=== PATIENT | female | born 1960 | race African-American/Black ===

== ENCOUNTER → 2017-01-26 | Emergency (ER) | payer SELFPAY ==
[~2017-01-26] MED LIST: OXYCODONE/APAP 5/325MG COMBO TABLET ONE; OXYCODONE/APAP 5/325MG COMBO TABLET PO ONE
[2017-01-26 19:15] VITALS: BP 162/83; PULSE 108; TEMP 98.6; BMI 35.3
--- NOTE | 2017-01-26 20:37 | PDOC ---
Attending Attestation - HPI HPI: 01/26/17 22:39 Patient is a 56 year old female with a significant past medical hx of who presents to the ED with swelling to the bilateral ankles. - Physicial Exam PE: 01/26/17 22:40 GENERAL: Awake, alert, and fully oriented, in no acute distress HEAD: No signs of trauma EYES: PERRLA, EOMI, sclera anicteric, conjunctiva clear ENT: Auricles normal inspection, hearing grossly normal, nares patent, oropharynx clear without exudates. Moist mucosa NECK: Normal ROM, supple, no lymphadenopathy, JVD, or masses LUNGS: Breath sounds equal, clear to auscultation bilaterally. No wheezes, and no crackles HEART: Regular rate and rhythm, normal S1 and S2, no murmurs, rubs or gallops ABDOMEN: Soft, nontender, normoactive bowel sounds. No guarding, no rebound. No masses EXTREMITIES: (+)bilateral dependent edema to the ankles and legs. Normal range of motion. No clubbing or cyanosis. No cords, erythema, or tenderness NEUROLOGICAL: Cranial nerves II through XII grossly intact. Normal speech. SKIN: Warm, Dry, normal turgor, no rashes or lesions noted. - Medical Decision Making 01/26/17 22:41 Plan -Duplex US r/o DVT -r/o CHF -Anticipate dc home with dependent edema 01/26/17 23:35 Duplex is negative for DVT Dc home with dependent edema Documentation prepared by GUERRERO Abad, acting as medical microbiologist for Johnny Shultz DO <Vanita Shah - Last Filed: 01/26/17 23:35> - Resident Resident Name: Stevo Pretty - ED Attending Attestation I have performed the following: I have examined & evaluated the patient, The case was reviewed & discussed with the resident, I agree w/resident's findings & plan, Exceptions are as noted <Johnny Shultz - Last Filed: 01/27/17 00:11> Discharge Disposition - Discharge Dispostion Last Admission D/C Date: 11/17/03 <Johnny Shultz - Last Filed: 01/27/17 00:11> - Diagnosis Dependent edema - Discharge Dispostion Disposition: HOME Condition at time of disposition: Good - Prescriptions Prescriptions: Furosemide [Lasix] 20 mg PO BID #10 tablet - Referrals Referrals: Sheela Adams MD [Primary Care Provider] - - Patient Instructions Printed Discharge Instructions: DI for Dependent Edema Additional Instructions: Please return to the ER if you experience concerning or worsening symptoms. Please call to follow up with your primary care provider to discuss your ER visit. We have given you medication to help relieve the fluid build up in your legs. Please take twice a day and follow up with your primary care provider to discuss other medication options. We have given you enough for 5 days. - Post Discharge Activity Work/School Note: Back to Work
--- NOTE | 2017-01-26 21:05 | PDOC ---
History of Present Illness - General Chief Complaint: Pain Stated Complaint: SWOLLEN ANKLES Time Seen by Provider: 01/26/17 19:59 - History of Present Illness Initial Comments: 01/26/17 23:04 Patient is a 56 year old female with a history of HTN who presents with left lower extremity pain and swelling. She reports onset of achy/sharp pain beginning in her ankle 1 week ago with associated swelling. Over the past week she notes increased pain and swelling up her left leg to her knee and difficulty walking prompting her visit to the ED today. She denies any recent long travel as well as SOB, chest pain, abdominal pain, or changes with urination or bowel movements. Past History - Past Medical History Allergies/Adverse Reactions: Allergies Allergy/AdvReac Type Severity Reaction Status Date / Time No Known Allergies Allergy Verified 01/26/17 19:11 Home Medications: Ambulatory Orders Amlodipine Bes/Olmesartan Med [Wendy 10-40 mg Tablet] 1 each PO DAILY 01/26/17 Furosemide [Lasix] 20 mg PO BID #10 tablet 01/26/17 Nebivolol [Bystolic -] 2.5 mg PO DAILY 01/26/17 HTN: Yes - Surgical History Appendectomy: Yes - Psycho/Social/Smoking Cessation Hx Anxiety: No Suicidal Ideation: No Smoking History: Never smoked Information on smoking cessation initiated: No Hx Alcohol Use: No Drug/Substance Use Hx: No Substance Use Type: Alcohol Review of Systems - Review of Systems Constitutional: No: Chills, Fever HEENTM: No: Nose Congestion, Throat Pain Respiratory: No: Cough, Shortness of Breath, Hemoptysis Cardiac (ROS): No: Chest Pain, Lightheadedness, Palpitations ABD/GI: No: Constipated, Diarrhea, Nausea, Vomiting : No: Burning, Dysuria Integumentary: No: Rash Neurological: No: Headache, Numbness, Tingling *Physical Exam - Vital Signs Last Vital Signs Temp Pulse Resp BP Pulse Ox 98.6 F 108 H 20 162/83 100 01/26/17 19:11 01/26/17 19:11 01/26/17 19:11 01/26/17 19:11 01/26/17 19:11 - Physical Exam Comments: 01/26/17 23:14 General Appearance: Nourished. No Apparent Distress HEENT: No Pharyngeal Erythema, Tonsillar Exudate, Tonsillar Erythema Respiratory/Chest: Lungs Clear, Normal Breath Sounds. No Rhonchi, Stridor, Wheezing Cardiovascular: Regular Rhythm, Regular Rate. No Murmur, Gallop/S3, Gallop/S4 Gastrointestinal/Abdominal: Normal Bowel Sounds, Soft. No Guarding, Rebound, Tenderness Extremity: 1+ edema around the left ankle. Left calf and ankle tenderness to palpation. Strong DP pulses bilaterally. Sensation to light touch and temperature intact bilaterally. Integumentary: Normal Color, Dry, Warm Neurologic: Fully Oriented, Alert, Normal Mood/Affect, Normal Response ED Treatment Course - LABORATORY CBC & Chemistry Diagram: 01/26/17 21:22 01/26/17 21:22 - RADIOLOGY Radiology Studies Ordered: Category Date Time Status ANKLE & FOOT-LEFT* [RAD] Stat Radiology 01/26/17 20:30 Ordered LEG TIB/FIB-LEFT [RAD] Stat Radiology 01/26/17 20:30 Ordered DUPLEX VASCUL US-1 LEG [US] Stat Ultrasound 01/26/17 20:30 Ordered Medical Decision Making - Medical Decision Making 01/26/17 23:15 Patient is a 56 year old female who presents who with left lower extremity edema and pain. The patient has had a previous surgery on her left ankle for a previous fracture with leftover instrumentation. Given her reported pain, we will obtain a plain radiograph of her left leg and ankle to evaluate for any pathology. We will also get a lower extremity doppler to evaluate for DVT though we have a lower suspicion for DVT at this time. We will also obtain a cbc, cmp and bnp to evaluate for CHF although also less likely at this time. The most likely cause of her symptoms is dependent edema 01/26/17 23:43 Patient's work up has been negative thus far. The most likely cause is dependent edema and we feel comfortable discharging the patient home with follow up with her primary care provider. We will provide the patient with Lasix to assist with the edema in her legs. The patient is agreeable to the plan. *DC/Admit/Observation/Transfer Diagnosis at time of Disposition: Dependent edema - Discharge Dispostion Disposition: HOME Condition at time of disposition: Good - Prescriptions Prescriptions: Furosemide [Lasix] 20 mg PO BID #10 tablet - Referrals Referrals: Sheeal Adams MD [Primary Care Provider] - - Patient Instructions Printed Discharge Instructions: DI for Dependent Edema Additional Instructions: Please return to the ER if you experience concerning or worsening symptoms. Please call to follow up with your primary care provider to discuss your ER visit. We have given you medication to help relieve the fluid build up in your legs. Please take twice a day and follow up with your primary care provider to discuss other medication options. We have given you enough for 5 days. - Attestations Physician Attestion: 01/26/17 23:37 I, Dr. Stevo Pretty, attest that this document has been prepared under my direction and personally reviewed by me in its entirety. I further attest, that it accurately reflects all work, treatment, procedures and medical decision -making performed by me.
[2017-01-26 21:32] LABS: EOSINOPHIL 1.4 % (0-4.5); MCH 31.1 pg (25.7-33.7); MCHC 33.6 g/dl (32.0-36.0); MEAN CELL VOLUME 92.6 fl (80-96); MEAN PLT VOLUME 7.8 fl (7.5-11.1); NEUTROPHILS 67.7 % (42.8-82.8); PLATELET COUNT 219 K/MM3 (134-434); RDW 14.4 % (11.6-15.6); WHITE BLOOD COUNT 8.9 K/mm3 (4.0-10.0)
[2017-01-26 22:03] LABS: ALBUMIN 3.7 g/dl (3.4-5.0); ANION GAP 8 (8-16); BILIRUBIN,TOTAL 0.2 mg/dL (0.2-1.0); CO2 27 mmol/L (21-32); GLUCOSE,RANDOM 103 mg/dL (74-106); SGOT/AST 18 U/L (15-37); SGPT/ALT 26 U/L (12-78); TOT PROT 7.7 g/dl (6.4-8.2)
[2017-01-26 22:06] LABS: ALK PHOS 130 U/L (45-117)
--- NOTE | 2017-01-27 10:16 | EKG ---
Test Reason : Blood Pressure : / mmHG Vent. Rate : 083 BPM Atrial Rate : 083 BPM P-R Int : 154 ms QRS Dur : 076 ms QT Int : 392 ms P-R-T Axes : 049 041 041 degrees QTc Int : 460 ms NORMAL SINUS RHYTHM NORMAL ECG WHEN COMPARED WITH ECG OF 26-AUG-2014 17:23, NO SIGNIFICANT CHANGE WAS FOUND Confirmed by MD KRISTINA, TRINA ([id number]) on 01/27/2017 10:16:28 AM Referred By: Confirmed By:TRINA ACEVEDO MD
== END | disposition home or self-care (01) ==
LOC: JER 19:03
DX: R60.0 Localized edema (principal); I10 Essential (primary) hypertension
CPT/HCPCS: 36415; 73590-TC-LT; 73610-TC-LT; 73630-TC-LT; 80053; 83880; 84443; 85025; 93005; 93010; 93971-TC; 99282-25

== ENCOUNTER 2018-06-07 00:59 | Inpatient (IN) | payer SELFPAY ==
[2018-06-07 03:08] LABS: EOS % 0.9 % (0-4.5); HEMOGLOBIN 13.4 GM/dL (10.7-15.3); LYMPH % 20.2 % (8-40); MCH 32.3 pg (25.7-33.7); MCHC 35.3 g/dl (32.0-36.0); MEAN CELL VOLUME 91.5 fl (80-96); MEAN PLT VOLUME 8.3 fl (7.5-11.1); MONO % 7.5 % (3.8-10.2); NEUT % 70.4 % (42.8-82.8); PLATELET COUNT 255 K/MM3 (134-434); RBC 4.16 M/mm3 (3.60-5.2); RDW 14.1 % (11.6-15.6); WHITE BLOOD COUNT 10.9 K/mm3 (4.0-10.0)
--- NOTE | 2018-06-07 03:42 | PDOC ---
History of Present Illness - General Chief Complaint: Chest Pain Stated Complaint: CHEST PAIN Time Seen by Provider: 06/07/18 02:09 - History of Present Illness Initial Comments: 06/07/18 03:40 58 yo F with h/o CAD, and HTN who p/w chest pain. Patient reports acute, unremitting, sharp, pressure-type, onset of left sided chest pain,with no identifiable triggers or alleviators. Pain radiates down left arm. Denies h/o similiar symptoms. Pain at rest, but worse with exertion. + Godfrey. Patient with missed dose Amlodipine x 1 week, and Bystolic x 1 day. Denies h/o PE/DVT. No recent immoblization, travel, surgery. Patient denies N/V, palpitations, cough, orthopnea, PND, wheezing, leg pain/ swelling, F,C, urinary complaints, abdominal pain, diarrhea, BPR, hematuria, constipation, lightheadedness, weakness, sensory changes. PMHx: as noted above. Does not recall past stress test x 2 years. Denies h/o stent placement, CABG. ROS: as noted SHx: Denies tobacco use, Etoh, IVDA Allergies: NKDA Past History - Past Medical History Allergies/Adverse Reactions: Allergies Allergy/AdvReac Type Severity Reaction Status Date / Time No Known Allergies Allergy Verified 06/07/18 03:19 Home Medications: Ambulatory Orders Amlodipine Bes/Olmesartan Med [Wendy 10-40 mg Tablet] 1 each PO DAILY 01/26/17 Nebivolol [Bystolic -] 2.5 mg PO DAILY 01/26/17 COPD: No HTN: Yes - Surgical History Appendectomy: Yes - Suicide/Smoking/Psychosocial Hx Smoking History: Never smoked Have you smoked in the past 12 months: No Information on smoking cessation initiated: No Hx Alcohol Use: No Drug/Substance Use Hx: No Substance Use Type: None Review of Systems - Review of Systems Comments:: 06/07/18 03:40 GENERAL/CONSTITUTIONAL: No fever or chills. No weakness. HEAD, EYES, EARS, NOSE AND THROAT: No change in vision. No ear pain or discharge. No sore throat. CARDIOVASCULAR: + chest pain and shortness of breath RESPIRATORY: No cough, wheezing, or hemoptysis. GASTROINTESTINAL: No nausea, vomiting, diarrhea or constipation. GENITOURINARY: No dysuria, frequency, or change in urination. MUSCULOSKELETAL: No joint or muscle swelling or pain. No neck or back pain. SKIN: No rash NEUROLOGIC: No headache, vertigo, loss of consciousness, or change in strength/ sensation. ENDOCRINE: No increased thirst. No abnormal weight change HEMATOLOGIC/LYMPHATIC: No anemia, easy bleeding, or history of blood clots. ALLERGIC/IMMUNOLOGIC: No hives or skin allergy. *Physical Exam - Vital Signs Last Vital Signs Temp Pulse Resp BP Pulse Ox 98.8 F 95 H 18 195/99 H 99 06/07/18 00:59 06/07/18 03:10 06/07/18 03:10 06/07/18 03:10 06/07/18 03:10 - Physical Exam Comments: 06/07/18 03:41 GENERAL: Awake, alert, and fully oriented, in no acute distress HEAD: No signs of trauma, normocephalic, atraumatic EYES: PERRLA, EOMI, sclera anicteric, conjunctiva clear ENT: Hearing grossly normal, nares patent, oropharynx clear without exudates. Moist mucosa NECK: Normal ROM, supple, no lymphadenopathy, JVD, or masses LUNGS: No distress, speaks full sentences, clear to auscultation bilaterally HEART: Regular rate and rhythm, normal S1 and S2, no murmurs, rubs or gallops, peripheral pulses normal and equal bilaterally. ABDOMEN: Soft, nontender, normoactive bowel sounds. No guarding, no rebound. No masses EXTREMITIES : Normal inspection, Normal range of motion, no edema. No clubbing or cyanosis. SKIN: Warm, Dry, normal turgor, no rashes or lesions noted Moderate Sedation - Procedure Monitoring Vital Signs: Procedure Monitoring Vital Signs Temperature 98.8 F 06/07/18 00:59 Pulse Rate 95 H 06/07/18 03:10 Respiratory Rate 18 06/07/18 03:10 Blood Pressure 195/99 H 06/07/18 03:10 O2 Sat by Pulse Oximetry (%) 99 06/07/18 03:10 Heart Score/ECG Review - History History: Moderately suspicious - Electrocardiogram EKG: Non specific repolarization disturbance - Age Age: 45-65 - Risk Factors Risk Factors Heart Score: Yes Hx Hypertension, Yes Positive family hx of cardiac disease, Yes Hx Obesity Based on the list above the patient has:: >/=3 risk factors or Hx atherosclerotic disease - Troponin Troponin: 1-3x normal limit - Score Heart Score - Total: 6 ED Treatment Course - LABORATORY CBC & Chemistry Diagram: 06/07/18 02:55 06/07/18 02:55 - ADDITIONAL ORDERS Additional order review: Laboratory Results 06/07/18 02:55 Sodium Cancelled Potassium Cancelled Chloride Cancelled Carbon Dioxide Cancelled Anion Gap Cancelled BUN Cancelled Creatinine Cancelled Creat Clearance w eGFR Cancelled Random Glucose Cancelled Calcium Cancelled Total Bilirubin Cancelled AST Cancelled ALT Cancelled Alkaline Phosphatase Cancelled Total Protein Cancelled Albumin Cancelled 06/07/18 02:55 RBC 4.16 MCV 91.5 MCHC 35.3 RDW 14.1 MPV 8.3 Neutrophils % 70.4 Lymphocytes % 20.2 Monocytes % 7.5 Eosinophils % 0.9 Basophils % 1.0 - RADIOLOGY Radiology Studies Ordered: Category Date Time Status CXRPORT [CHEST X-RAY PORTABLE*] [RAD] Stat Radiology 06/07/18 02:36 Taken Medical Decision Making - Medical Decision Making 06/07/18 03:57 58 yo F with h/o CAD, and HTN who p/w chest pain. BP 207/100, HR 110, T 98.8, R 20, A&Ox3. Cardiopulmonary exam unremarkable. ACS/OR r/o. R/o PNA. Low risk PE weils crtieria. Low suspicion CHF, asthma, copd, Ao dissection. ED Course: CBC,CMP, cardiac EKG, CXR 06/07/18 05:39 Nitro Sublingual EKG: Sinus tach, with biatrial enlargement, LVH. Absent CHANO, STD, or TWI. Nml interval duration. 06/07/18 05:40 Trop: 0.08 CBC,CMP: Unremarkable 06/07/18 05:41 BP: 172/94, HR 88 06/07/18 05:42 Heart Score 6 Plan to admit to tele/obs 06/07/18 06:05 patient accepted to medicine. spoke to rubina almeida *DC/Admit/Observation/Transfer Diagnosis at time of Disposition: Chest pain at rest, Elevated troponin I level - Discharge Dispostion Condition at time of disposition: Fair Decision to Admit order: Yes - Referrals - Patient Instructions Additional Instructions: Please return to the emergency department with any new or worsening symptoms or concerns. Please follow up with your primary care physician within 72 hours. - Post Discharge Activity - Attestations Physician Attestion: 06/07/18 03:41 I attest to the information provided in this note.
[2018-06-07 03:45] LABS: ALBUMIN 3.5 g/dl (3.4-5.0); ALK PHOS 144 U/L (45-117); ANION GAP 8 MMOL/L (8-16); BILIRUBIN,TOTAL 0.2 mg/dL (0.2-1); BLOOD UREA NITROGEN 15 mg/dL (7-18); CALCIUM 8.5 mg/dL (8.5-10.1); CHLORIDE 105 mmol/L (98-107); CO2 27 mmol/L (21-32); CREATININE 1.2 mg/dL (0.55-1.3); GLUCOSE,RANDOM 158 mg/dL (74-106); N-TERMINAL BNP 106.2 pg/ml (5-125); POTASSIUM 3.9 mmol/L (3.5-5.1); SGOT/AST 17 U/L (15-37); SGPT/ALT 21 U/L (13-61); SODIUM 139 mmol/L (136-145); TOT PROT 7.8 g/dl (6.4-8.2)
[2018-06-07] MEDS ORDERED: ASPIRIN 325 MG ENTERIC COATED TABLET (FP) PO ONE (03:56)
[2018-06-07] MEDS ORDERED: ASPIRIN 325 MG TABLET ONE (04:02)
[2018-06-07] MEDS ORDERED: NITROGLYCERIN SUBLINGUAL 1/200 0.3 MG BTL SL ONE (05:38)
--- NOTE | 2018-06-07 06:39 | PDOC ---
Attending Attestation - Resident Resident Name: Christian Izquierdo - ED Attending Attestation I have performed the following: I have examined & evaluated the patient, The case was reviewed & discussed with the resident, I agree w/resident's findings & plan, Exceptions are as noted - HPI HPI: 06/07/18 07:22 58F here with L sided exertional chest pain radiating down the LUE a/w acutely elevated BP - Physicial Exam PE: 06/07/18 07:23 agree with exam documented by resident - Medical Decision Making 06/07/18 07:23 Typical chest pain, ekg non-ischemic f/u labs including cardiac enzymes admit 06/07/18 07:24 initial trop 0.08 follow trend admit to tele
--- NOTE | 2018-06-07 11:57 | EKG ---
Test Reason : Blood Pressure : / mmHG Vent. Rate : 109 BPM Atrial Rate : 109 BPM P-R Int : 162 ms QRS Dur : 068 ms QT Int : 366 ms P-R-T Axes : 043 015 025 degrees QTc Int : 492 ms SINUS TACHYCARDIA BIATRIAL ENLARGEMENT LEFT VENTRICULAR HYPERTROPHY ABNORMAL ECG WHEN COMPARED WITH ECG OF 26-JAN-2017 23:06, NO SIGNIFICANT CHANGE WAS FOUND Confirmed by BIBI SHIPMAN MD ([id number]) on 06/07/2018 11:56:55 AM Referred By: Confirmed By:BIBI SHIPMAN MD
--- NOTE | 2018-06-07 12:19 | HP ---
Admitting History and Physical - Admission Chief Complaint: came in with left sided chest pain History of Present Illness: 58 yo F with h/o CAD, and HTN who p/w chest pain. Patient reports acute, unremitting, sharp, pressure-type, onset of left sided chest pain,with no identifiable triggers or alleviators. Pain radiates down left arm. Denies h/o similiar symptoms. Pain at rest, but worse with exertion. + Godfrey. Patient with missed dose Amlodipine x 1 week, and Bystolic x 1 day. Denies h/o PE/DVT. No recent immoblization, travel, surgery. per patient the chest pain got worse and she told her fiance to bring her in the car to ER on the way, she felt lightheaded and dizzy she said in ER she was noted to have elevated BP 207/100 she got aspirin and sublingual nitro and that made her chest salo nadn lightheadedness feel better History Source: Patient - Past Medical History Cardiovascular: Yes: CAD, HTN - Past Surgical History Past Surgical History: Yes: Hysterectomy - Smoking History Smoking history: Never smoked Have you smoked in the past 12 months: No - Alcohol/Substance Use Hx Alcohol Use: No Home Medications - Allergies Allergies/Adverse Reactions: Allergies Allergy/AdvReac Type Severity Reaction Status Date / Time No Known Allergies Allergy Verified 06/07/18 03:19 - Home Medications Home Medications: Ambulatory Orders Amlodipine Bes/Olmesartan Med [Wendy 10-40 mg Tablet] 1 each PO DAILY 01/26/17 Nebivolol [Bystolic -] 2.5 mg PO DAILY 01/26/17 Family Disease History - Family Disease History Family Disease History: Diabetes: Mother, Other: Father (stroke), Brother (HTN and renal disease) Review of Systems - Review of Systems Cardiovascular: reports: Chest Pain Physical Examination Vital Signs: Vital Signs Temperature 98.1 F 06/07/18 08:28 Pulse Rate 81 06/07/18 11:07 Respiratory Rate 17 06/07/18 11:07 Blood Pressure 146/81 06/07/18 11:07 O2 Sat by Pulse Oximetry (%) 100 06/07/18 08:28 Constitutional: Yes: Calm Cardiovascular: Yes: Regular Rate and Rhythm, S1, S2 Respiratory: Yes: CTA Bilaterally Gastrointestinal: Yes: Normal Bowel Sounds, Soft Edema: Yes (pedal ) Labs: CBC, BMP 06/07/18 02:55 06/07/18 02:55 Problem List - Problems (1) Chest pain at rest Assessment/Plan: with elevated troponin will start heparin drip lipid profile continue BB cardiolgy eval for further intervention statin echo trend troponin check hgba1c Code(s): R07.9 - CHEST PAIN, UNSPECIFIED (2) Elevated troponin I level Assessment/Plan: tele admit echo bystolic inc to 5mg Code(s): R74.8 - ABNORMAL LEVELS OF OTHER SERUM ENZYMES (3) HTN (hypertension) Assessment/Plan: olmesartan 40mgNot available in hospital will given diovan 320mg instead, continue norvasc inc bystolic dose form 2.5 to 5 mg daily Code(s): I10 - ESSENTIAL (PRIMARY) HYPERTENSION
[2018-06-07] MEDS ORDERED: HEPARIN NA (PORCINE) 5,000 UNITS/ML 1ML VIAL IVPUSH PRN ×2 (12:26)
[2018-06-07] MEDS ORDERED: VALSARTAN 80 MG TABLET (UD) PO SCH (12:30)
[2018-06-07] MEDS ORDERED: VALSARTAN 80 MG TABLET (UD) ONE (12:45)
[2018-06-07] MEDS ORDERED: amLODIPine BESYLATE 5 MG TABLET (FP) ONE (12:45)
[2018-06-07] MEDS ORDERED: HEPARIN INFUSION - 25,000 UNITS/500 ML INFUS.BAG IVPB ONE (12:46)
[2018-06-07] MEDS: VALSARTAN 160 MG TABLET (UD) PO SCH (12:47)
[2018-06-07] MEDS: amLODIPine BESYLATE 10 MG TABLET (FP) PO SCH (12:48)
[2018-06-07] MEDS: HEPARIN SOD,PORK IN 0.45% NACL 25,000 UNIT/500 ML INFUS.BAG IVPB SCH ×2 (13:22→14:15)
[2018-06-07 14:19] LABS: INR 1.06 (0.83-1.09); PROTHROMBIN TIME (PATIENT) 12.5 SEC (9.7-13.0)
--- NOTE | 2018-06-07 18:04 | CON.CARD ---
Consult Consult Specialty:: Cardiology Reason for Consultation:: Chest pain - History of Present Illness Chief Complaint: Chest pain History of Present Illness: This is a 58 year old female with a PMH of CAD, and HTN. She presents now with constant chest pain, non exertional, worse with a deep breath, reproducible, chest pain. The pain radiates down her left side. Troponin levels are negative x3 and EKG is not acute. The pain had mostly resolved. She stated that her last stress test was 2 years ago and was "normal". Patient with missed dose Amlodipine x 1 week, and Bystolic x 1 day. - Past Medical History Cardio/Vascular: Yes: CAD, HTN - Past Surgical History Past Surgical History: Yes: Hysterectomy - Alcohol/Substance Use Hx Alcohol Use: No - Smoking History Smoking history: Never smoked Have you smoked in the past 12 months: No Home Medications - Allergies Allergies/Adverse Reactions: Allergies Allergy/AdvReac Type Severity Reaction Status Date / Time No Known Allergies Allergy Verified 06/07/18 03:19 - Home Medications Home Medications: Ambulatory Orders Amlodipine Bes/Olmesartan Med [Wendy 10-40 mg Tablet] 1 each PO DAILY 01/26/17 Nebivolol [Bystolic -] 2.5 mg PO DAILY 01/26/17 Family Disease History - Family Disease History Family Disease History: Diabetes: Mother, Other: Father (stroke), Brother (HTN and renal disease) Vital Signs: Vital Signs Temperature 98 F 06/07/18 14:13 Pulse Rate 86 06/07/18 16:14 Respiratory Rate 17 06/07/18 16:14 Blood Pressure 138/68 06/07/18 16:14 O2 Sat by Pulse Oximetry (%) 99 06/07/18 16:14 Constitutional: Yes: Well Nourished Eyes: Yes: WNL HENT: Yes: WNL Neck: Yes: WNL Respiratory: Yes: Regular, CTA Bilaterally Gastrointestinal: Yes: Normal Bowel Sounds Cardiovascular: Yes: Regular Rate and Rhythm Heart Sounds: Yes: S1, S2 Edema: No Neurological: Yes: Alert, Oriented (Nonfocal) - Other Data Labs, Other Data: CBC, BMP 06/07/18 02:55 06/07/18 02:55 INR, PTT INR 1.06 (0.83-1.09) 06/07/18 13:45 Troponin, BNP 06/07/18 06/07/1806/07/18 02:55 02:55 06:08 Troponin I 0.08 H 0.08 H B-Natriuretic Peptide 106.2 06/07/18 17:08 Troponin I 0.08 H B-Natriuretic Peptide Troponin, BNP 06/07/18 06/07/18 06/07/18 02:55 02:55 06:08 Troponin I 0.08 H 0.08 H B-Natriuretic Peptide 106.2 06/07/18 17:08 Troponin I 0.08 H B-Natriuretic Peptide Assessment/Plan 58 year old female with a PMH of CAD, and HTN. She presents now with constant chest pain, non exertional, worse with a deep breath, reproducible, chest pain. The pain radiates down her left side. Troponin levels are negative x3 and EKG is not acute. The pain had mostly resolved. She stated that her last stress test was 2 years ago and was "normal". Most likely non cardiac chest pain 3 negative enzymes, could consider D/C home for out patient stress testing Continue baseline meds including amlodipine, valsartan, atorvastatin, and bystolic.
[2018-06-07 18:58] VITALS: BMI 36.3
[2018-06-07] MEDS ORDERED: FLU VACCINE QUAD 60 MCG/0.5 ML (MDV 18-19) IM ONE (19:30)
[2018-06-07 21:28] LABS: INR 1.06 (0.83-1.09); PROTHROMBIN TIME (PATIENT) 12.5 SEC (9.7-13.0)
[2018-06-07] MEDS ORDERED: ATORVASTATIN CA 40 MG TABLET (FP) PO SCH (22:00)
[2018-06-08 06:23] LABS: BASO % 0.9 % (0-2.0); EOS % 1.9 % (0-4.5); HEMATOCRIT 40.1 % (32.4-45.2); HEMOGLOBIN 12.9 GM/dL (10.7-15.3); LYMPH % 30.6 % (8-40); MCH 30.2 pg (25.7-33.7); MCHC 32.3 g/dl (32.0-36.0); MEAN CELL VOLUME 93.7 fl (80-96); MONO % 7.2 % (3.8-10.2); NEUT % 59.4 % (42.8-82.8); PLATELET COUNT 225 K/MM3 (134-434); RBC 4.28 M/mm3 (3.60-5.2); RDW 14.2 % (11.6-15.6); WHITE BLOOD COUNT 8.4 K/mm3 (4.0-10.0)
[2018-06-08 06:57] LABS: INR 1.06 (0.83-1.09); PROTHROMBIN TIME (PATIENT) 12.5 SEC (9.7-13.0)
[2018-06-08 07:01] LABS: ALBUMIN 3.2 g/dl (3.4-5.0); ALK PHOS 130 U/L (45-117); ANION GAP 8 MMOL/L (8-16); BILIRUBIN,TOTAL 0.5 mg/dL (0.2-1); BLOOD UREA NITROGEN 15 mg/dL (7-18); CALCIUM 8.6 mg/dL (8.5-10.1); CHLORIDE 105 mmol/L (98-107); CHOLESTEROL 175 mg/dL (50-200); CO2 27 mmol/L (21-32); CREATININE 1.2 mg/dL (0.55-1.3); GLUCOSE,RANDOM 124 mg/dL (74-106); HDL CHOLESTEROL 55 mg/dL (40-60); MAGNESIUM 2.3 mg/dL (1.8-2.4); SGOT/AST 11 U/L (15-37); SGPT/ALT 18 U/L (13-61); SODIUM 139 mmol/L (136-145); TOT PROT 6.8 g/dl (6.4-8.2); TRIGLYCERIDES 129 mg/dL (0-150)
--- NOTE | 2018-06-08 09:27 | PN ---
Progress Note, Physician History of Present Illness: cp improved - Current Medication List Current Medications: Active Medications Amlodipine Besylate (Norvasc -) 10 mg PO DAILY [facility] Last Admin: 06/07/18 12:48 Dose: 10 mg Atorvastatin Calcium (Lipitor -) 40 mg PO HS [facility] Last Admin: 06/07/18 21:55 Dose: 40 mg Nebivolol (Bystolic -) 5 mg PO DAILY [facility] Valsartan (Diovan -) 320 mg PO DAILY [facility] Last Admin: 06/07/18 12:47 Dose: 320 mg - Objective Vital Signs: Vital Signs Temperature 97.8 F 06/08/18 05:00 Pulse Rate 79 06/08/18 05:00 Respiratory Rate 20 06/08/18 05:00 Blood Pressure 124/73 06/08/18 05:00 O2 Sat by Pulse Oximetry (%) 94 L 06/07/18 21:00 Cardiovascular: Yes: Regular Rate and Rhythm Respiratory: Yes: Regular, CTA Bilaterally Gastrointestinal: Yes: Normal Bowel Sounds, Soft Labs: CBC, BMP 06/08/18 05:30 06/08/18 05:30 INR, PTT INR 1.06 (0.83-1.09) 06/08/18 05:30 Assessment/Plan - Problems (1) Chest pain at rest Assessment/Plan: with elevated troponin dc heparin drip asa nuclear stress test lipid profile continue BB cardiology eval noted echo trend troponin check hgba1c Code(s): R07.9 - CHEST PAIN, UNSPECIFIED (2) Elevated troponin I level Assessment/Plan: tele admit echo bystolic inc to 5mg Code(s): R74.8 - ABNORMAL LEVELS OF OTHER SERUM ENZYMES (3) HTN (hypertension) Assessment/Plan: olmesartan 40mgNot available in hospital will given diovan 320mg instead, continue norvasc inc bystolic dose form 2.5 to 5 mg daily Code(s): I10 - ESSENTIAL (PRIMARY) HYPERTENS
[2018-06-08] MEDS ORDERED: ASPIRIN COATED 81 MG TABLET.EC PO SCH (10:00)
[2018-06-08] MEDS: VALSARTAN 160 MG TABLET (UD) PO SCH (10:07)
[2018-06-08] MEDS: NEBIVOLOL 5 MG TABLET (FP) PO SCH ×2 (10:07→14:00)
[2018-06-08] MEDS: amLODIPine BESYLATE 10 MG TABLET (FP) PO SCH (10:07)
--- NOTE | 2018-06-08 15:19 | PN ---
Progress Note, Physician Chief Complaint: Presently comfortable History of Present Illness: This is a 58 year old female with a PMH of CAD, and HTN. She presents now with constant chest pain, non exertional, worse with a deep breath, reproducible, chest pain. The pain radiates down her left side. Troponin levels are negative x3 and EKG is not acute. The pain had mostly resolved. She stated that her last stress test was 2 years ago and was "normal". Patient with missed dose Amlodipine x 1 week, and Bystolic x 1 day. 06/08/18 Nuclear stress test negative. EF 71% - Current Medication List Current Medications: Active Medications Amlodipine Besylate (Norvasc -) 10 mg PO DAILY [facility] Last Admin: 06/08/18 10:07 Dose: 10 mg Aspirin (Ecotrin -) 81 mg PO DAILY [facility] Last Admin: 06/08/18 10:08 Dose: 81 mg Atorvastatin Calcium (Lipitor -) 40 mg PO HS [facility] Last Admin: 06/07/18 21:55 Dose: 40 mg Nebivolol (Bystolic -) 5 mg PO DAILY [facility] Last Admin: 06/08/18 14:00 Dose: 5 mg Valsartan (Diovan -) 320 mg PO DAILY [facility] Last Admin: 06/08/18 10:07 Dose: 320 mg - Objective Vital Signs: Vital Signs Temperature 98 F 06/08/18 10:08 Pulse Rate 83 06/08/18 10:08 Respiratory Rate 20 06/08/18 10:08 Blood Pressure 137/68 06/08/18 10:08 O2 Sat by Pulse Oximetry (%) 97 06/08/18 09:00 Constitutional: Yes: Well Nourished Eyes: Yes: WNL HENT: Yes: WNL Neck: Yes: WNL Cardiovascular: Yes: WNL, Regular Rate and Rhythm (NL S1S2) Respiratory: Yes: CTA Bilaterally Gastrointestinal: Yes: Normal Bowel Sounds Extremities: Yes: WNL Edema: No Neurological: Yes: Alert, Oriented (Non focal) Labs: CBC, BMP 06/08/18 05:30 06/08/18 05:30 INR, PTT INR 1.06 (0.83-1.09) 06/08/18 05:30 Assessment/Plan 58 year old female with a PMH of CAD, and HTN. She presents now with constant chest pain, non exertional, worse with a deep breath, reproducible, chest pain. The pain radiates down her left side. Troponin levels are negative x3 and EKG is not acute. The pain had mostly resolved. She stated that her last stress test was 2 years ago and was "normal". 06/08/18 Minimal troponin levels. Nuclear stress test negative. EF 71% Continue baseline meds including amlodipine, valsartan, atorvastatin, and bystolic. Can be D/C's home from a cardiac standpoint.
--- NOTE | 2018-06-08 16:59 | DS ---
Physical Examination Vital Signs: Vital Signs Temperature 98.2 F 06/08/18 15:35 Pulse Rate 86 06/08/18 15:35 Respiratory Rate 20 06/08/18 15:35 Blood Pressure 147/84 06/08/18 15:35 O2 Sat by Pulse Oximetry (%) 97 06/08/18 09:00 Labs: CBC, BMP 06/08/18 05:30 06/08/18 05:30 Discharge Summary Reason For Visit: CHEST TROPONIN I LEVEL Current Active Problems Chest pain at rest (Acute) Elevated troponin I level (Acute) HTN (hypertension) (Acute) Condition: Improved - Instructions Diet, Activity, Other Instructions: Please return to the emergency department with any new or worsening symptoms or concerns. Please follow up with your primary care physician within 72 hours. Referrals: Sheela Adams MD [Staff Physician] - 1 Week Disposition: HOME - Home Medications Comprehensive Discharge Medication List: Ambulatory Orders Amlodipine Bes/Olmesartan Med [Wendy 10-40 mg Tablet] 1 each PO DAILY 01/26/17 Aspirin Coated [Ecotrin -] 81 mg PO DAILY tablet.ec 06/08/18 Atorvastatin Ca [Lipitor] 40 mg PO HS #30 tablet 06/08/18 Nebivolol [Bystolic -] 5 mg PO DAILY tab 06/08/18
--- NOTE | 2018-06-08 17:54 | ECHO ---
Name: PRATEEK NIEVES Exam:Adult Echocardiogram Study Date: 06/07/2018 03:29 PM Age: 58 yrs Reason For Study: WALL MOTION ABNORMALITY Height: 59 in Weight: 188 lb BSA: 1.8 m2 MMode/2D Measurements & Calculations IVSd: 1.0 cm Ao root diam: 2.6 cm LVIDd: 4.7 cm LA dimension: 3.8 cm LVIDs: 2.8 cm LVPWd: 1.2 cm LVPWs: 1.7 cm EDV(Teich): 104.2 ml ESV(Teich): 30.6 ml Doppler Measurements & Calculations MV E max humberto: 80.9 cm/sec Ao V2 max: 144.6 cm/sec MV A max humberto: 127.8 cm/sec Ao max P.4 mmHg MV E/A: 0.63 MV dec time: 0.19 sec LV V1 max P.7 mmHg PA V2 max: 92.3 cm/sec LV V1 max: 108.1 cm/sec PA max P.4 mmHg Med Peak E' Humberto: 4.5 cm/sec Med E/e': 18.1 Lat Peak E' Humberto: 6.9 cm/sec Lat E/e': 11.7 Procedure A complete two-dimensional transthoracic echocardiogram was performed (2D, M-mode, Doppler and color flow Doppler). Left Ventricle The left ventricular size, thickness and function are normal. The left ventricular ejection fraction is normal. Ejection Fraction = 60-65%. The left ventricular wall motion is normal. Right Ventricle The right ventricle is normal in size and function. Atria Normal left and right atrial size and function. Mitral Valve There is no mitral regurgitation noted. Tricuspid Valve There is trace tricuspid regurgitation. There was insufficient TR detected to calculate RV systolic p ressure. Aortic Valve No hemodynamically significant valvular aortic stenosis. No aortic regurgitation is present. Pulmonic Valve There is no pulmonic valvular regurgitation. Great Vessels The aortic root is normal size. Pericardium/Pleura There is no pericardial effusion. Interpretation Summary The left ventricular size, thickness and function are normal The right ventricle is normal in size and function. There is trace tricuspid regurgitation. MD Keanu Underwood 06/07/2018 04:29 PM
[2018-06-08 19:42] VITALS: BP 124/66; PULSE 90; TEMP 98
== END 2018-06-08 18:58 | disposition home or self-care (01) | DRG 313 ==
LOC: JER 00:59 → JERBED 05:43 → UNDOADMIN 06:06 → JERBED 06:06 → OBSVTOIN 12:10 → J4W 17:30
PROVIDERS: ADMIT Family Medicine; ATTEND Family Medicine
DX: R07.89 Other chest pain (principal); I25.10 Atherosclerotic heart disease of native coronary artery without angina pectoris; I10 Essential (primary) hypertension; E66.9 Obesity, unspecified; Z68.36 Body mass index [BMI] 36.0-36.9, adult; Z90.710 Acquired absence of both cervix and uterus; R74.8 Abnormal levels of other serum enzymes
CPT/HCPCS: 36415; 71045-TC-FY; 78452-TC; 80053; 80061; 82550; 83036; 83721; 83735; 83880; 84100; 84484; 85025; 85610; 85730; 90688; 93005; 93010; 93017; 93306-TC; 99285-25; A9502; G0008; G0378

== ENCOUNTER 2020-12-20 18:25 | Emergency (ER) | payer SELFPAY ==
[2020-12-20 18:32] VITALS: TEMP 98; BMI 35.1
[2020-12-20] MEDS ORDERED: DIPHTH,PERTUSS(ACELL),TET 0.5 ML DISP.SYRIN IM ONE ×2 (19:34→19:40)
[2020-12-20] MEDS ORDERED: amLODIPine BESYLATE 5 MG TABLET (FP) PO ONE (19:55)
[2020-12-20] MEDS ORDERED: amLODIPine BESYLATE 5 MG TABLET (FP) ONE (19:59)
[2020-12-20 20:39] VITALS: BP 182/106; PULSE 86
== END 2020-12-20 20:43 | disposition home or self-care (01) ==
LOC: JER 18:25 → JERFT 18:25
PROC: 3E0234Z Introduction of Serum, Toxoid and Vaccine into Muscle, Percutaneous Approach (ICD-10-PCS; principal; 2020-12-20)
DX: S61.237A Puncture wound without foreign body of left little finger without damage to nail, initial encounter (principal)
CPT/HCPCS: 36415; 80074; 90715; 99284-25

== ENCOUNTER 2021-06-19 22:52 | Emergency (ER) | payer SELFPAY ==
[2021-06-19 23:05] VITALS: TEMP 98.3; BMI 35.7
[2021-06-20] MEDS ORDERED: LIDOCAINE 5% TOPICAL PATCH TP ONE (00:29)
[2021-06-20] MEDS ORDERED: KETOROLAC TROMETHAMINE 30 MG/1 ML VIAL IM ONE (00:29)
[2021-06-20] MEDS ORDERED: LIDOCAINE 5% TOPICAL PATCH ONE (00:41)
[2021-06-20] MEDS ORDERED: KETOROLAC TROMETHAMINE 30 MG/1 ML VIAL ONE (00:41)
[2021-06-20 02:23] VITALS: BP 185/91; PULSE 88
[2021-06-20] MEDS ORDERED: amLODIPine BESYLATE 10 MG TABLET (FP) PO ONE (02:53)
[2021-06-20] MEDS ORDERED: amLODIPine BESYLATE 5 MG TABLET (FP) ONE (03:01)
[2021-06-20] MEDS ORDERED: LIDOCAINE PATCH REMOVAL MC SCH (22:00)
== END 2021-06-20 03:15 | disposition home or self-care (01) ==
LOC: JER 22:52
PROC: 3E0233Z Introduction of Anti-inflammatory into Muscle, Percutaneous Approach (ICD-10-PCS; principal; 2021-06-19)
DX: M25.511 Pain in right shoulder (principal); I10 Essential (primary) hypertension
CPT/HCPCS: 73030-TC-RT-FY; 99284-25

== ENCOUNTER 2022-11-21 19:59 | Emergency (ER) | payer OTHER ==
[2022-11-21 20:03] VITALS: RESP 24; TEMP 98.2; BMI 37.2
[2022-11-21] MEDS ORDERED: PIPERACILLIN/TAZOBACTAM 4.5 GM VIAL IVPB ONE (20:19)
[2022-11-21] MEDS ORDERED: VANCOMYCIN 1,000 MG in DEXTROSE 5%-WATER - 250 ML IVPB ONE (20:19)
[2022-11-21] MEDS ORDERED: SODIUM CHLORIDE 0.9% 1000 ML INFUS.BAG IV ONE (20:19)
[2022-11-21] MEDS ORDERED: PIPERACILLIN/TAZOB 3.375 GM 3.375 GM/50 ML BAG IVPB ONE (20:25)
[2022-11-21] MEDS ORDERED: methylPREDNISolone NA SUCC 125 MG/2 ML VIAL IVPUSH ONE (20:30)
[2022-11-21] MEDS ORDERED: methylPREDNISolone NA SUCC 125 MG/2 ML VIAL ONE (20:32)
[2022-11-21 21:04] LABS: BASO % 0.4 % (0-2.0); EOS % 0.1 % (0-4.5); HEMATOCRIT 39.5 % (32.4-45.2); HEMOGLOBIN 13.4 GM/dL (10.7-15.3); LYMPH % 7.8 % (8-40); MCH 30.7 pg (25.7-33.7); MCHC 33.9 g/dl (32.0-36.0); MEAN CELL VOLUME 90.5 fl (80-96); MEAN PLT VOLUME 7.8 fl (7.5-11.1); MONO % 5.7 % (3.8-10.2); PLATELET COUNT 265 10^3/uL (134-434); RBC 4.37 M/mm3 (3.60-5.2); RDW 14.9 % (11.6-15.6); WHITE BLOOD COUNT 17.9 K/mm3 (4.0-10.0)
[2022-11-21 21:13] VITALS: BP 188/88; PULSE 105
[2022-11-21 21:13] LABS: INR 1.14 (0.83-1.09); PROTHROMBIN TIME (PATIENT) 13.2 SEC (9.7-13.0)
[2022-11-21 21:15] LABS: ACTIVATED PTT 47.3 SECONDS (25.2-36.5)
[2022-11-21 21:25] LABS: CHLORIDE 102 mmol/L (98-107); SODIUM 136 mmol/L (136-145)
[2022-11-21 21:28] LABS: ANION GAP 8 MMOL/L (8-16); BLOOD UREA NITROGEN 14.3 mg/dL (7-18); CO2 26 mmol/L (21-32); GLUCOSE,RANDOM 129 mg/dL (74-106)
[2022-11-21 21:32] LABS: BILIRUBIN,TOTAL 0.5 mg/dL (0.2-1); CREATININE 1.1 mg/dL (0.55-1.3); SGOT/AST 12 U/L (15-37); SGPT/ALT 22 U/L (13-61); TOT PROT 8.5 g/dl (6.4-8.2)
[2022-11-21 21:34] LABS: ALK PHOS 100 U/L (45-117)
== END 2022-11-21 21:20 | disposition short-term general hospital (02) ==
LOC: JER 19:59
PROC: 3E033GC Introduction of Other Therapeutic Substance into Peripheral Vein, Percutaneous Approach (ICD-10-PCS; principal; 2022-11-21)
PROC: 3E03329 Introduction of Other Anti-infective into Peripheral Vein, Percutaneous Approach (ICD-10-PCS; 2022-11-21)
DX: R22.1 Localized swelling, mass and lump, neck (principal); R13.10 Dysphagia, unspecified; M54.2 Cervicalgia; K12.2 Cellulitis and abscess of mouth; R68.84 Jaw pain; Z20.822 Contact with and (suspected) exposure to COVID-19
CPT/HCPCS: 0241U-QW; 36415; 70491-TC; 71045-TC-FY; 80053; 82550; 82553; 83605; 84484; 85025; 85610; 85730; 86850; 86900; 86901; 87040; 99291; 99292; Q9967

== ENCOUNTER 2023-07-11 23:50 | Observation (INO) | payer OTHER ==
[2023-07-12] MEDS ORDERED: ACETAMINOPHEN 325 MG TABLET (FP) PO ONE (00:26)
[2023-07-12] MEDS ORDERED: ACETAMINOPHEN 325 MG TABLET (FP) ONE (00:39)
[2023-07-12 00:59] LABS: BASO % 0.8 % (0-2.0); EOS % 0.4 % (0-4.5); HEMATOCRIT 38.1 % (32.4-45.2); HEMOGLOBIN 12.7 GM/dL (10.7-15.3); LYMPH % 8.1 % (8-40); MCH 30.2 pg (25.7-33.7); MCHC 33.3 g/dl (32.0-36.0); MEAN CELL VOLUME 90.6 fl (80-96); MEAN PLT VOLUME 7.8 fl (7.5-11.1); MONO % 9.8 % (3.8-10.2); NEUT % 80.9 % (42.8-82.8); PLATELET COUNT 244 10^3/uL (134-434); RBC 4.21 M/mm3 (3.60-5.2); RDW 14.3 % (11.6-15.6); WHITE BLOOD COUNT 8.7 K/mm3 (4.0-10.0)
[2023-07-12 01:21] LABS: POTASSIUM 3.8 mmol/L (3.5-5.1)
[2023-07-12 01:24] LABS: ALBUMIN 3.5 g/dl (3.4-5.0)
[2023-07-12 01:26] LABS: BLOOD UREA NITROGEN 10.9 mg/dL (7-18)
[2023-07-12 01:27] LABS: CREATININE 1.2 mg/dL (0.55-1.3)
[2023-07-12 01:29] LABS: BILIRUBIN,TOTAL 0.3 mg/dL (0.2-1); TOT PROT 7.7 g/dl (6.4-8.2)
[2023-07-12] MEDS ORDERED: SODIUM CHLORIDE 0.9% 500 ML INFUS.BAG IV ONE (02:53)
[2023-07-12] MEDS ORDERED: ALBUTEROL SO4 2.5/IPRATROPIUM 0.5 INH SOL 3 ML VIAL.NEB. NEB ONE (03:49)
[2023-07-12] MEDS: ALBUTEROL SO4 2.5/IPRATROPIUM 0.5 INH SOL 3 ML VIAL.NEB. NEB SCH ×6 (04:08→20:18)
[2023-07-12] MEDS ORDERED: methylPREDNISolone NA SUCC 125 MG/2 ML VIAL IVPUSH ONE (05:41)
[2023-07-12] MEDS ORDERED: VANCOMYCIN 1,000 MG in DEXTROSE 5%-WATER - 250 ML IVPB ONE (06:31)
[2023-07-12] MEDS ORDERED: methylPREDNISolone NA SUCC 125 MG/2 ML VIAL ONE (06:36)
[2023-07-12] MEDS ORDERED: OSELTAMIVIR PHOSPHATE 75 MG CAPSULE PO ONE (07:18)
[2023-07-12] MEDS ORDERED: guaiFENesin/CODEINE 5 ML UNIT-DOSE CUPS PO PRN (08:48)
[2023-07-12] MEDS ORDERED: ACETAMINOPHEN 325 MG TABLET (FP) PO PRN (08:48)
[2023-07-12] MEDS ORDERED: ALBUTEROL SO4 HFA INHALER IH PRN (09:00)
[2023-07-12] MEDS: ENOXAPARIN NA (PORCINE) 40 MG/0.4 ML DISP.SYRIN SQ SCH (09:30)
[2023-07-12] MEDS: MULTIVITAMINS (DAILY MVI) TABLET (FP) PO SCH (09:32)
[2023-07-12] MEDS: ASPIRIN COATED 81 MG TABLET.EC PO SCH (09:32)
[2023-07-12] MEDS ORDERED: [UNRECOGNIZED DRUG - OTHER] PO SCH (10:00)
[2023-07-12] MEDS ORDERED: AMLODIPINE BES PO SCH (10:00)
[2023-07-12] MEDS ORDERED: OLMESARTAN MED PO SCH (10:00)
[2023-07-12] MEDS: LOSARTAN POTASSIUM 50 MG TABLET PO SCH (11:35)
[2023-07-12] MEDS: NEBIVOLOL 10 MG TABLET (FP) PO SCH (11:36)
[2023-07-12] MEDS: amLODIPine BESYLATE 10 MG TABLET (FP) PO SCH (11:36)
[2023-07-12] MEDS: ABACAVIR/DOLUTEGRAVIR/LAMIVUDI (TRIUMEQ) TABLET PO SCH ×2 (11:42→13:25)
[2023-07-12] MEDS: methylPREDNISolone NA SUCC 40 MG/1 ML VIAL IVPB SCH ×2 (11:48→17:17)
[2023-07-12 15:34] VITALS: BMI 38.1
[2023-07-12] MEDS ORDERED: ATORVASTATIN CA 40 MG TABLET (FP) PO SCH (22:00)
[2023-07-12] MEDS ORDERED: ABACAVIR/DOLUTEGRAVIR/LAMIVUDI (TRIUMEQ) TABLET PO SCH (22:00)
[2023-07-12] MEDS: OSELTAMIVIR PHOSPHATE 75 MG CAPSULE PO SCH (22:40)
[2023-07-13] MEDS: methylPREDNISolone NA SUCC 40 MG/1 ML VIAL IVPB SCH (01:09)
[2023-07-13] MEDS: ALBUTEROL SO4 2.5/IPRATROPIUM 0.5 INH SOL 3 ML VIAL.NEB. NEB SCH ×3 (08:00→15:30)
[2023-07-13] MEDS: MULTIVITAMINS (DAILY MVI) TABLET (FP) PO SCH (09:18)
[2023-07-13] MEDS: amLODIPine BESYLATE 10 MG TABLET (FP) PO SCH (09:18)
[2023-07-13] MEDS: ASPIRIN COATED 81 MG TABLET.EC PO SCH (09:18)
[2023-07-13] MEDS: LOSARTAN POTASSIUM 50 MG TABLET PO SCH (09:19)
[2023-07-13] MEDS: ENOXAPARIN NA (PORCINE) 40 MG/0.4 ML DISP.SYRIN SQ SCH (09:19)
[2023-07-13 09:40] VITALS: TEMP 98.1
[2023-07-13] MEDS ORDERED: methylPREDNISolone NA SUCC 40 MG/1 ML VIAL IVPB SCH (10:00)
[2023-07-13 10:10] LABS: BASO % 0.1 % (0-2.0); HEMATOCRIT 37.5 % (32.4-45.2); HEMOGLOBIN 12.5 GM/dL (10.7-15.3); LYMPH % 11.4 % (8-40); MCH 30.9 pg (25.7-33.7); MCHC 33.4 g/dl (32.0-36.0); MEAN CELL VOLUME 92.5 fl (80-96); MEAN PLT VOLUME 7.9 fl (7.5-11.1); MONO % 8.8 % (3.8-10.2); NEUT % 79.7 % (42.8-82.8); PLATELET COUNT 225 10^3/uL (134-434); POTASSIUM 3.7 mmol/L (3.5-5.1); RBC 4.06 M/mm3 (3.60-5.2); RDW 13.8 % (11.6-15.6); WHITE BLOOD COUNT 10.3 K/mm3 (4.0-10.0)
[2023-07-13 10:13] LABS: ALBUMIN 3.1 g/dl (3.4-5.0); BLOOD UREA NITROGEN 16.6 mg/dL (7-18); CALCIUM 8.3 mg/dL (8.5-10.1); MAGNESIUM 2.1 mg/dL (1.8-2.4)
[2023-07-13 10:16] LABS: CREATININE 1.3 mg/dL (0.55-1.3); PHOSPHOROUS 3.4 mg/dL (2.5-4.9)
[2023-07-13] MEDS: OSELTAMIVIR PHOSPHATE 75 MG CAPSULE PO SCH (10:16)
[2023-07-13] MEDS: NEBIVOLOL 10 MG TABLET (FP) PO SCH (10:16)
[2023-07-13 10:18] LABS: BILIRUBIN,TOTAL 0.2 mg/dL (0.2-1); TOT PROT 7.5 g/dl (6.4-8.2)
[2023-07-13 16:04] VITALS: BP 141/84; PULSE 81; RESP 18
== END 2023-07-13 16:50 | disposition home or self-care (01) ==
LOC: JER 23:50 → JERBED 07-12 05:41 → J5S 07-12 10:29
PROVIDERS: ADMIT Internal Medicine
PROC: 3E0F7GC Introduction of Other Therapeutic Substance into Respiratory Tract, Via Natural or Artificial Opening (ICD-10-PCS; principal; 2023-07-12)
PROC: 3E023GC Introduction of Other Therapeutic Substance into Muscle, Percutaneous Approach (ICD-10-PCS; 2023-07-12)
PROC: 3E03329 Introduction of Other Anti-infective into Peripheral Vein, Percutaneous Approach (ICD-10-PCS; 2023-07-12)
PROC: 3E033GC Introduction of Other Therapeutic Substance into Peripheral Vein, Percutaneous Approach (ICD-10-PCS; 2023-07-12)
DX: J09.X2 Influenza due to identified novel influenza A virus with other respiratory manifestations (principal); J18.9 Pneumonia, unspecified organism; B20 Human immunodeficiency virus [HIV] disease; I10 Essential (primary) hypertension; Z29.89 Encounter for other specified prophylactic measures
CPT/HCPCS: 0241U-QW; 36415; 71046-TC-FY; 71275-TC; 80053; 83735; 83880; 84100; 84484; 85025; 87040; 93005; 93010; 94640; 94761; 96365; 96372; 96375; 96376; 99285-25; G0378; Q9967

== ENCOUNTER 2023-11-11 14:16 | Emergency (ER) | payer OTHER ==
[2023-11-11 14:24] VITALS: BP 153/88; PULSE 75; RESP 16; TEMP 98.6; BMI 38.0
== END 2023-11-11 16:40 | disposition home or self-care (01) ==
LOC: JERFT 14:16
DX: R05.3 Chronic cough (principal); M54.9 Dorsalgia, unspecified; R09.89 Other specified symptoms and signs involving the circulatory and respiratory systems; J06.9 Acute upper respiratory infection, unspecified; M62.830 Muscle spasm of back; Z20.822 Contact with and (suspected) exposure to COVID-19
CPT/HCPCS: 0241U-QW; 71046-TC-FY; 99284-25